=== PATIENT | female | born 1980 | race Caucasian/White ===

== ENCOUNTER 2018-05-20 11:01 | Emergency (ER) | payer MEDICAID ==
[~2018-05-20] VITALS: Wt 68.1 kg
[~2018-05-20 11:01] MED LIST: CEPH-443 PO; IBUP-1542 PO; OXYC-281 PO
[2018-05-20] MEDS ORDERED: METOCLOPRAMIDE 10 MG INJ IV STA (11:27)
[2018-05-20] MEDS ORDERED: SOD CHLORIDE 0.9% 1,000 ML IV STA (11:27)
[2018-05-20] MEDS ORDERED: IBUP-1542 PO (12:12)
[2018-05-20] MEDS ORDERED: METO10TA3 PO (14:00)
--- NOTE | 2018-05-20 14:04 | ERD ---
ER Documentation Chief Complaint Chief Complaint 9 WKS PREG, N/V GENEREALIZED MALAISE [id number] HPI 38-year-old female presents with nausea vomiting for last 2 weeks. She is approximately 9 weeks by dates. She denies abdominal pain or vaginal bleeding. She denies fevers, significant abdominal pain. She feels weakness and malaise. She denies urinary complaints. ROS All systems reviewed and are negative except as per history of present illness. Medications Home Meds Active Scripts Metoclopramide Hcl* (Metoclopramide Hcl*) 10 Mg Tablet, 10 MG PO Q6H PRN for NAUSEA AND OR VOMITING, #20 TAB Prov:AMADOR NATION MD 05/20/18 Cephalexin* (Keflex*) 500 Mg Capsule, 500 MG PO QID for 7 Days, CAP Prov:RYAN SIMS MD 07/25/15 Oxycodone Hcl-Acetaminophen* (Percocet*) 5-325 Mg Tablet, 1 TAB PO TID PRN for PAIN, #12 TAB Prov:RYAN SIMS MD 07/25/15 Ibuprofen* (Motrin*) 600 Mg Tab, 600 MG PO TID for PAIN AND/OR INFLAMMATION, #30 TAB Prov:RYAN SIMS MD 07/25/15 Discontinued Scripts Ibuprofen* (Motrin*) 600 Mg Tab, 600 MG PO Q6, #20 TAB Prov:AMADOR NATION MD 05/20/18 Allergies Allergies: Coded Allergies: No Known Allergy (Unverified , 07/25/15) PMhx/Soc History of Surgery: No Anesthesia Reaction: No Hx Neurological Disorder: No Hx Respiratory Disorders: No Hx Cardiac Disorders: No Hx Psychiatric Problems: No Hx Miscellaneous Medical Probl: No Hx Alcohol Use: No Hx Substance Use: No Hx Tobacco Use: No Smoking Status: Never smoker FmHx Family History: No diabetes, No coronary disease, No other Physical Exam Vitals Vital Signs Date Temp Pulse Resp B/P (MAP) Pulse Ox O2 O2 Flow FiO2 Time Delivery Rate 05/20/18 98.7 70 20 117/62 98 11:09 (80) Physical Exam Const: No acute distress Head: Atraumatic Eyes: Normal Conjunctiva ENT: Normal External Ears, Nose and Mouth. Neck: Full range of motion. No meningismus. Resp: Clear to auscultation bilaterally Cardio: Regular rate and rhythm, no murmurs Abd: Soft, non tender, non distended. Normal bowel sounds Skin: No petechiae or rashes Back: No midline or flank tenderness Ext: No cyanosis, or edema Neur: Awake and alert Psych: Normal Mood and Affect Result Diagram: 05/20/18 1140 05/20/18 1140 Results 24 hrs Laboratory Tests Test 05/20/18 11:40 White Blood Count 10.2 10^3/ul Red Blood Count 4.06 10^6/ul Hemoglobin 12.7 g/dl Hematocrit 36.7 % Mean Corpuscular Volume 90.4 fl Mean Corpuscular Hemoglobin 31.3 pg Mean Corpuscular Hemoglobin Concent 34.6 g/dl Red Cell Distribution Width 12.2 % Platelet Count 287 10^3/UL Mean Platelet Volume 9.9 fl Immature Granulocytes % 0.600 % Neutrophils % 76.1 % Lymphocytes % 17.2 % Monocytes % 5.9 % Eosinophils % 0.0 % Basophils % 0.2 % Nucleated Red Blood Cells % 0.0 /100WBC Immature Granulocytes # 0.060 10^3/ul Neutrophils # 7.7 10^3/ul Lymphocytes # 1.8 10^3/ul Monocytes # 0.6 10^3/ul Eosinophils # 0.0 10^3/ul Basophils # 0.0 10^3/ul Nucleated Red Blood Cells # 0.0 10^3/ul Urine Color CORINNA Urine Clarity CLOUDY Urine pH 5.0 Urine Specific [place] 1.030 Urine Ketones 2+ mg/dL Urine Nitrite NEGATIVE mg/dL Urine Bilirubin NEGATIVE mg/dL Urine Urobilinogen NEGATIVE mg/dL Urine Leukocyte Esterase 1+ Rosa/ul Urine Microscopic RBC 7 /HPF Urine Microscopic WBC 10 /HPF Urine Squamous Epithelial Cells MANY /HPF Urine Bacteria FEW /HPF Urine Mucus MANY /HPF Urine Hemoglobin 1+ mg/dL Urine Glucose NEGATIVE mg/dL Urine Total Protein 1+ mg/dl Sodium Level 142 mmol/L Potassium Level 3.6 mmol/L Chloride Level 105 mmol/L Carbon Dioxide Level 24 mmol/L Anion Gap 13 Blood Urea Nitrogen 13 mg/dl Creatinine 0.57 mg/dl Est Glomerular Filtrat Rate mL/min > 60 mL/min Glucose Level 89 mg/dl Calcium Level 10.0 mg/dl Total Bilirubin 0.9 mg/dl Direct Bilirubin 0.00 mg/dl Indirect Bilirubin 0.9 mg/dl Aspartate Amino Transf (AST/SGOT) 31 IU/L Alanine Aminotransferase (ALT/SGPT) 37 IU/L Alkaline Phosphatase 57 IU/L Total Protein 8.7 g/dl Albumin 4.7 g/dl Globulin 4.00 g/dl Albumin/Globulin Ratio 1.17 Lipase 111 U/L Current Medications Medications Dose Sig/Yadira Start Time Status Last (Trade) Ordered Route PRN Stop Time Admin Dose Reason Admin Sodium 1,000 ml @ Q1H STAT 05/20/18 DC 05/20/18 Chloride 1,000 mls/hr IV 11:27 05/20/18 11:44 12:26 10 mg ONCE STAT 05/20/18 DC 05/20/18 Metoclopramid IV 11:27 05/20/18 11:42 e HCl 11:28 (Reglan) Procedures/MDM Pelvic ultrasound shows approximately 7-week 3-day intrauterine with positive heart tones without acute abnormalities. CBC and CMP normal. Urine shows few white blood cells, trace leukocyte esterase, hemoglobin although there are many epithelial cells suggesting dirty catch. Doubt UTI given the chronicity of patient's symptoms and no urinary complaints and other supportive information to suggest UTI. She likely has vomiting of without significant dehydration or signs of complications of such as ectopic , bleeding, signs of surgical abdomen. Will treat with Reglan, continued hydration at home, primary care follow-up and return precautions. The patient was stable with no new complaints during the ER course. Clinically, there is no current evidence to suggest meningitis, sepsis, acute abdomen, pneumonia, stroke, acute coronary syndrome, pulmonary embolism, aortic dissection or any other emergent condition appearing to require further evaluation or hospitalization. Patient counseled regarding my diagnostic impression and care plan. Prior to discharge all questions answered. Pt agrees with treatment plan and understands strict return precautions. Pt is instructed to follow up with primary care provider within 24-48 hours. Precautionary instructions provided including instructions to return to the ER if not improving or for any worsening or changing symptoms or concerns. Departure Diagnosis: Primary Impression: Nausea and vomiting Vomiting type: unspecified Vomiting Intractability: unspecified Qualified Codes: R11.2 - Nausea with vomiting, unspecified Condition: Stable Patient Instructions: Hyperemesis Gravidarum Additional Instructions: ultrsonido nomal. Cheque otro vez con campos doctor primario en el proximo gutierrez or regresa para mas o nueva simptomas. AMADOR NATION MD May 20, 2018 14:04
[2018-05-20 14:11] VITALS: BP 110/76; PULSE 75; RESP 16
== END 2018-05-20 14:11 | disposition home or self-care (01) ==
LOC: FTE 11:01
DX: O21.9 Vomiting of pregnancy, unspecified (principal); Z3A.01 Less than 8 weeks gestation of pregnancy
CPT/HCPCS: 36415; 76801; 80053; 81001; 83690; 85025; 96374; J2765; J7030; Z7502

== ENCOUNTER 2018-05-29 14:56 | Emergency (ER) | payer MEDICAID ==
[~2018-05-29] VITALS: Wt 65.4 kg
[~2018-05-29 14:56] MED LIST changes: +METO10TA3 PO
[2018-05-29] MEDS ORDERED: ONDANSETRON 4 MG INJ IV STA (18:25)
[2018-05-29] MEDS ORDERED: SOD CHLORIDE 0.9% 1,000 ML IV ONE (18:30)
--- NOTE | 2018-05-29 19:03 | ERD ---
ER Documentation Chief Complaint Chief Complaint bib self, cc: n/v x 2 days, HPI 38-year-old female (uncomplicated) who is approximately 10-11 weeks who presents with complaint of persistent nausea vomiting over the past week. She has been unable to tolerate p.o. having difficulty keeping food down as well as medications. Has felt generalized weakness secondary to not eating. She denies fevers, abdominal pain, diarrhea, vaginal bleeding, urinary symptoms. Presented to ED for similar symptoms approximately 2-3 weeks ago and had unremarkable ultrasound, sent home with Reglan as well as other symptomatic treatment. States she has follow-up appointment with her [facility] tomorrow. ROS All systems reviewed and are negative except as per history of present illness. Medications Home Meds Active Scripts Ondansetron (Ondansetron Odt) 4 Mg Tab.rapdis, 4 MG PO Q6H PRN for NAUSEA AND/OR VOMITING, #10 TAB Prov:BIRGIT SHIPMAN PA-C 05/29/18 Metoclopramide Hcl* (Metoclopramide Hcl*) 10 Mg Tablet, 10 MG PO Q6H PRN for NAUSEA AND OR VOMITING, #20 TAB Prov:AMADOR NATION MD 05/20/18 Cephalexin* (Keflex*) 500 Mg Capsule, 500 MG PO QID for 7 Days, CAP Prov:RYAN SIMS MD 07/25/15 Oxycodone Hcl-Acetaminophen* (Percocet*) 5-325 Mg Tablet, 1 TAB PO TID PRN for PAIN, #12 TAB Prov:RYAN SIMS MD 07/25/15 Ibuprofen* (Motrin*) 600 Mg Tab, 600 MG PO TID for PAIN AND/OR INFLAMMATION, #30 TAB Prov:RYAN SIMS MD 07/25/15 Allergies Allergies: Coded Allergies: No Known Allergy (Unverified , 05/29/18) PMhx/Soc History of Surgery: No Anesthesia Reaction: No Hx Neurological Disorder: No Hx Respiratory Disorders: No Hx Cardiac Disorders: No Hx Psychiatric Problems: No Hx Miscellaneous Medical Probl: No Hx Alcohol Use: No Hx Substance Use: No Hx Tobacco Use: No FmHx Family History: No diabetes, No coronary disease, No other Physical Exam Vitals Vital Signs Date Temp Pulse Resp B/P (MAP) Pulse Ox O2 O2 Flow FiO2 Time Delivery Rate 3/10/19 98.7 62 20 123/74 100 Room Air 19:49 (90) 05/29/18 98.7 64 19 123/63 100 15:00 (83) Physical Exam I have reviewed the triage vital signs. Const: Well nourished, well developed, appears stated age Eyes: PERRL, no conjunctival injection HENT: NCAT, Neck supple without meningismus CV: RRR, Warm, well-perfused extremities RESP: CTAB, Unlabored respiratory effort GI: soft, non-tender, non-distended, no masses, no flank tenderness MSK: No gross deformities appreciated Skin: Warm, dry. No rashes Neuro: Alert,grossly intact. Sensation and motor function of extremities grossly intact. Psych: Appropriate mood and affect. Results 24 hrs Current Medications Medications Dose Sig/Yadira Start Time Status Last (Trade) Ordered Route PRN Stop Time Admin Dose Reason Admin Sodium 1,000 ml @ Q1H ONCE 05/29/18 DC 05/29/18 Chloride 1,000 mls/hr IV 18:30 18:30 05/29/18 19:29 Ondansetron 4 mg ONCE STAT 05/29/18 DC 05/29/18 HCl (Zofran IV 18:25 18:30 Inj) 05/29/18 18:27 Procedures/MDM 38 yo female who presents with persistent nausea and vomiting. ED Course/Reevaluation: Tolerated POs Assessment/MDM/Plan: Presentation is most consistent with hyperemesis gravidarum DDx Considered the following diagnoses though based upon evaluation, pt does not meet reasonable level of consistency with characteristic findings/likelihood for further pursuit at this time (risks/outweigh benefits of non-indicated testing). Shared decision making with with pt attempted to the extent possible. Not c/w infectious precipitant given no infectious sx on ROS. Not c/w ectopic given no vaginal bleeding, no abd pain. Disposition: home w/ prompt OB f/u. patient has appointment for tomorrow. zofran ODT (preg class C) Pt advised of return precautions, specifically inability to tolerate POs. Counseling: Patient/family educated on diagnostics, assessment, treatment plan. Patient/family amendable and in agreement with proposed plan. All questions and concerns answered and addressed. Supervision: Discussed and obtained approval/confirmation of evaluation (history/exam/diagnostics) and plan (assessment/interventions/disposition) with ED attending physician Departure Condition: Stable Patient Instructions: Hyperemesis Gravidarum BIRGIT SHIPMAN PA-C May 29, 2018 19:01 AMADOR NATION MD May 29, 2018 20:25
[2018-05-29] MEDS ORDERED: ONDA4TAB14 PO (19:28)
[2018-05-29 19:49] VITALS: BP 123/74; PULSE 62; RESP 20
== END 2018-05-29 19:51 | disposition home or self-care (01) ==
LOC: FTE 14:56
DX: O21.0 Mild hyperemesis gravidarum (principal); Z3A.11 11 weeks gestation of pregnancy
CPT/HCPCS: 96374; J2405; J7030; Z7502

== ENCOUNTER 2018-06-08 12:31 | Emergency (ER) | payer MEDICAID ==
[~2018-06-08] VITALS: Ht 160 cm; Wt 70.0 kg
[~2018-06-08 12:31] MED LIST changes: +ONDA4TAB14 PO
[2018-06-08 13:11] VITALS: Ht 160 cm; Wt 70.0 kg
[2018-06-08] MEDS ORDERED: CEPH-443 PO (16:48)
--- NOTE | 2018-06-08 16:52 | ERD ---
ER Documentation Chief Complaint Chief Complaint SYNCOPAL EVENT WITH DIZZINESS, 19 WKS PREG HPI 38-year-old female presents the emergency department from her clinic for evaluation of was described as a "syncopal episode." Patient states that she went to her clinic for care. She was feeling dizzy as she has been vomiting associated with this . She continued to feel dizzy and felt lightheaded from the dizziness, but did not actually pass out. She reported no chest pain or shortness of breath, no headache, weakness or numbness or other neurologic symptoms. After being noted to questionable he passed out, she was referred to the emergency department for evaluation. Upon arrival, she states she feels nauseous but has no other complaints. ROS All systems reviewed and are negative except as per history of present illness. Medications Home Meds Active Scripts Cephalexin* (Keflex*) 500 Mg Capsule, 500 MG PO QID for 5 Days, CAP Prov:FRANCIS ESTRADA 06/08/18 Ondansetron (Ondansetron Odt) 4 Mg Tab.rapdis, 4 MG PO Q6H PRN for NAUSEA AND/OR VOMITING, #10 TAB Prov:BIRGIT SHIPMAN PA-C 05/29/18 Discontinued Scripts Metoclopramide Hcl* (Metoclopramide Hcl*) 10 Mg Tablet, 10 MG PO Q6H PRN for NAUSEA AND OR VOMITING, #20 TAB Prov:AMADOR NATION MD 05/20/18 Cephalexin* (Keflex*) 500 Mg Capsule, 500 MG PO QID for 7 Days, CAP Prov:RYAN SIMS MD 07/25/15 Oxycodone Hcl-Acetaminophen* (Percocet*) 5-325 Mg Tablet, 1 TAB PO TID PRN for PAIN, #12 TAB Prov:RYAN SIMS MD 07/25/15 Ibuprofen* (Motrin*) 600 Mg Tab, 600 MG PO TID for PAIN AND/OR INFLAMMATION, #30 TAB Prov:RYAN SIMS MD 07/25/15 Allergies Allergies: Coded Allergies: No Known Allergy (Unverified , 06/08/18) PMhx/Soc History of Surgery: Yes (C SECTION) Anesthesia Reaction: No Hx Neurological Disorder: No Hx Respiratory Disorders: No Hx Cardiac Disorders: No Hx Psychiatric Problems: No Hx Miscellaneous Medical Probl: No Hx Alcohol Use: No Hx Substance Use: No Hx Tobacco Use: No Smoking Status: Never smoker Physical Exam Vitals Vital Signs Date Temp Pulse Resp B/P (MAP) Pulse Ox O2 O2 Flow FiO2 Time Delivery Rate 06/08/18 98.7 92 18 113/67 100 13:11 (82) Physical Exam GENERAL: The patient is well developed and appropriate for usual state of health in no apparent distress HEENT: Pupils equal, round, and reactive to light. EOMI. There is no scleral icterus. NECK: C-spine is soft and supple, there is no meningismus. There is no cervical lymphadenopathy. LUNGS: Clear to auscultation bilaterally. There are no rales, wheezes or rhonchi. HEART: Regular rate and rhythm, no murmurs, clicks, rubs or gallops. ABDOMEN: Soft, non-tender, non-distended. There are bowel sounds in all four quadrants. No rebound or guarding. EXTREMITIES: There is no peripheral cyanosis or edema. No focal swelling or erythema. NEURO: The patient moves all four extremities with 5/5 strength. Cranial nerves II - XII are intact. Normal gait. Alert and oriented SKIN: There is no apparent rash or petechiae. HEME/LYMPHATIC: There is no evidence of excessive bruising or lymphedema. PSYCHIATRIC: The patient does not appear anxious or depressed. Result Diagram: 06/08/18 1543 06/08/18 1543 Results 24 hrs Laboratory Tests Test 06/08/18 15:30 06/08/18 15:34 06/08/18 15:43 Urine Color CORINNA Urine Clarity SLIGHTLY CLOUDY Urine pH 5.0 Urine Specific [place] 1.027 Urine Ketones 2+ mg/dL Urine Nitrite NEGATIVE mg/dL Urine Bilirubin NEGATIVE mg/dL Urine Urobilinogen 2+ mg/dL Urine Leukocyte Esterase 1+ Rosa/ul Urine Microscopic RBC 4 /HPF Urine Microscopic WBC 6 /HPF Urine Squamous Epithelial Cells MODERATE /HPF Urine Mucus MANY /HPF Urine Hemoglobin NEGATIVE mg/dL Urine Glucose NEGATIVE mg/dL Urine Total Protein 1+ mg/dl POC Beta HCG, Qualitative POSITIVE White Blood Count 10.0 10^3/ul Red Blood Count 4.52 10^6/ul Hemoglobin 14.0 g/dl Hematocrit 39.4 % Mean Corpuscular Volume 87.2 fl Mean Corpuscular Hemoglobin 31.0 pg Mean Corpuscular 35.5 g/dl Hemoglobin Concent Red Cell Distribution Width 11.9 % Platelet Count 250 10^3/UL Mean Platelet Volume 10.1 fl Immature Granulocytes % 0.300 % Neutrophils % 82.3 % Lymphocytes % 11.2 % Monocytes % 6.0 % Eosinophils % 0.0 % Basophils % 0.2 % Nucleated Red Blood Cells % 0.0 /100WBC Immature Granulocytes # 0.030 10^3/ul Neutrophils # 8.2 10^3/ul Lymphocytes # 1.1 10^3/ul Monocytes # 0.6 10^3/ul Eosinophils # 0.0 10^3/ul Basophils # 0.0 10^3/ul Nucleated Red Blood Cells # 0.0 10^3/ul Sodium Level 139 mmol/L Potassium Level 3.4 mmol/L Chloride Level 99 mmol/L Carbon Dioxide Level 25 mmol/L Anion Gap 15 Blood Urea Nitrogen 17 mg/dl Creatinine 0.61 mg/dl Est Glomerular Filtrat > 60 mL/min Rate mL/min Glucose Level 102 mg/dl Calcium Level 10.0 mg/dl Procedures/MDM Patient was taken to a room, seen and evaluated. Comfort measures were initiated. Diagnostic tests were ordered and reviewed. 3 LEAD RHYTHM STRIP: Normal sinus rhythm without ectopy EK lead EKG reviewed by myself: Normal Sinus Rhythm Normal [place] and intervals No ST elevation, depression, or T wave inversion Impression: Normal EKG RADIOLOGY: Reviewed with the radiologist REEVALUATION: 1650: Diagnostic tests were appreciated and discussed with the patient. She remained nontoxic appearing was appropriate for discharge MEDICAL DECISION MAKIN-year-old female presents the emergency department after syncopal episode in the setting of hyperemesis. After supportive care, patient does not appear to be significantly dehydrated and her electrolytes look appropriate for outpatient care. She does have a questionable dirty urine and I will be treating as she is even though her symptoms are not necessarily consistent with urinary tract infection. She shows no evidence of cardiac, pulmonary or other causes of her questionable syncopal episode and based on her history, I suspect this is really only related to the hyperemesis. She appears otherwise clinically nontoxic and appropriate for discharge at this time. Departure Diagnosis: Primary Impression: Urinary tract infection Additional Impression: Hyperemesis arising during Condition: Good Patient Instructions: Hyperemesis Gravidarum (Severe Morning Sickness), Urinary Tract Infections in Women Additional Instructions: Consulte a campos mdico para el seguimiento segn lo discutido. Lleve carmina copia de los resultados de campos prueba, si corresponde, a esta visita de seguimiento. Consulte a campos mdico o regrese aqu si karla sntomas no mejoran carmen se esperaba. En cualquier momento, regrese al departamento de emergencias por cualquier cambio o empeoramiento en karla sntomas. FRANCIS ESTRADA Jun 08, 2018 16:52
[2018-06-08 17:04] VITALS: BP 111/78; PULSE 88; RESP 18
== END 2018-06-08 17:27 | disposition home or self-care (01) ==
LOC: E/R 12:31
DX: O23.41 Unspecified infection of urinary tract in pregnancy, first trimester (principal); O21.0 Mild hyperemesis gravidarum; R42 Dizziness and giddiness; Z3A.10 10 weeks gestation of pregnancy
CPT/HCPCS: 36415; 76801; 80048; 81001; 81025; 84702; 85025; 86900; 86901; 93005; Z7502